=== PATIENT | male | born 1975 | race Caucasian/White ===

== ENCOUNTER 2024-08-06 18:21 | Emergency (ER) | payer MEDICAID ==
[~2024-08-06] VITALS: Ht 182.9 cm; Wt 96.6 kg
[2024-08-06 20:15] LABS: BASOPHILS % (AUTO) 0.4 % (0.0-2.0); EOSINOPHILS # (AUTO) 0.4 K/uL (0.0-0.7); EOSINOPHILS % (AUTO) 5.4 % (0.0-6.0); HEMATOCRIT 48 % (39-51); HEMOGLOBIN 16.7 g/dL (13.5-17.5); LYMPHOCYTES # (AUTO) 2.7 K/uL (0.8-4.8); MEAN CORPUSCULAR HEMOGLOBIN 30 PG (26.0-33.0); MEAN CORPUSCULAR HGB CONC 35 g/dl (31.0-36.0); MEAN CORPUSCULAR VOLUME 85 fL (80-96); MONOCYTES # (AUTO) 0.5 K/uL (0.1-1.30); MONOCYTES % (AUTO) 6.2 % (2.0-12.0); NEUTROPHILS # (AUTO) 4.4 K/uL (1.8-8.9); PLATELET COUNT (AUTO) 188 K/uL (150-450); RED BLOOD CELL COUNT(AUTO) 5.65 MIL/uL (4.5-6.0); RED CELL DISTRIBUTION WIDTH 13.2 % (11.5-15.0); WHITE BLOOD COUNT (AUTO) 8.1 K/uL (4.3-11.0)
[2024-08-06 20:31] LABS: CALCIUM, SERUM 8.7 mg/dL (8.5-10.1); CREATININE 0.9 mg/dL (0.6-1.3); POTASSIUM 3.6 mmol/L (3.5-5.1)
[2024-08-06 20:36] LABS: ERYTHROCYTE SEDIMENTATION RATE 3 MM/HR (0-15)
[2024-08-06 20:44] LABS: C-REACTIVE PROTEIN 0.22 mg/dL (0.0-0.30); THYROID STIMULATING HORMONE 0.89 uIU/mL (0.358-3.74)
[2024-08-06 21:01] LABS: ALBUMIN 3.7 g/dL (3.4-5.0); BILIRUBIN,TOTAL 0.4 mg/dL (0.2-1.0); MAGNESIUM 2.1 mg/dL (1.8-2.4); TOTAL PROTEIN, SERUM 6.7 g/dL (6.4-8.2)
[2024-08-06] MEDS ORDERED: CYCL5TAB PO (21:28)
[2024-08-06] MEDS ORDERED: KETO10TA2 PO (21:28)
[2024-08-06] MEDS ORDERED: GABA-532 PO (21:28)
[2024-08-06 21:43] VITALS: BP 126/84; TEMP 98.3; O2SAT 98
== END 2024-08-06 21:43 | disposition home or self-care (01) ==
LOC: ER 18:21
DX: R20.2 Paresthesia of skin (principal); R20.0 Anesthesia of skin; Z79.899 Other long term (current) drug therapy
CPT/HCPCS: 36415; 80053-TC; 82607-TC; 83735-TC; 84439-TC; 84443-TC; 85025-TC; 85652-TC; 86140-TC